=== PATIENT | female | born 1970 | race Caucasian/White ===

== ENCOUNTER 2018-11-03 17:53 | Emergency (ER) | payer MEDICARE, MEDICAID ==
[~2018-11-03 17:53] MED LIST: AMBIEN 10MG10 MG PO; AMBIEN10 MG PO; DIAMOX 250MG250 MG PO; DIAMOX SEQUELS500 M1; GEODON80 MG; GEODON80 MG PO; LITHIUM 30300 MG/CAP PO; LITHIUM 60600 MG/CAP PO; MAGIC MOUTHWASH1 M1 PO; NEXIUM 40MG40 MG; NYSTATIN 100MU/M1 ML; NYSTATIN 100MU/ML PO; OXYCODONE30 MG PO; OXYCONTIN 20MG20 MG PO; OXYCONTIN ER40 MG PO; PERCOCET 325 MG1 TAB PO; PREDNISONE20 MG PO; SEROQUEL200 MG PO; SYNTHROID0.05 MG PO; TRAZADONE HYDR100 MG; VALIUM 5MG T5 MG/TAB PO; VENTOLIN0.09 MG IH; VIBRAMYCIN100 MG PO
[2018-11-03] MEDS ORDERED: PROPRANOLOL HCL20 M2 PO (18:02)
[2018-11-03] MEDS ORDERED: OXCARBAZEPINE300 M1 PO (18:02)
[2018-11-03] MEDS ORDERED: OMEPRAZOLE D/R20 MG PO (18:02)
[2018-11-03] MEDS ORDERED: DESYREL50 MG PO (18:02)
[2018-11-03] MEDS ORDERED: ADVAIR DISKUS1 DS2 IH (18:02)
[2018-11-03] MEDS ORDERED: ZIPRASIDONE HCL80 MG PO (18:03)
[2018-11-03] MEDS ORDERED: QUETIAPINE FUM400 MG PO (18:03)
[2018-11-03 18:17] LABS: EOS # 0.4 (0.04-0.40); EOS % 3.5 % (1.0-5.0); HEMATOCRIT 40.3 % (37.0-47.0); HEMOGLOBIN 12.8 g/dL (12.5-16.0); LYMPH# 2.7 (1.50-4.00); MEAN CELL VOLUME 91 fl (78-100); MEAN CORPUSCULAR HEMOGLOBIN 29 pg (27-31); MEAN CORPUSCULAR HGB CONC 32 g/dL (33-37); MEAN PLATELET VOLUME 9.9 fl (7.4-10.4); MONO # 0.8 (0.20-0.80); NEU # 7.4 (1.40-6.50); PLATELET COUNT 313 K/mm3 (130-400); RED BLOOD COUNT 4.41 M/mm3 (4.10-5.30); RED CELL DISTRIBUTION WIDTH 13.7 % (11.5-14.5); WHITE BLOOD COUNT 11.3 K/mm3 (4.8-10.8)
[2018-11-03 18:59] LABS: ALBUMIN 4.4 g/dL (3.5-5.0); ALT/SGPT 30 U/L (0-55); AST-SGOT 24 U/L (5-34); CALCIUM 10.1 mg/dL (8.4-10.2); CARBON DIOXIDE 24 mmol/L (22-29); GLUCOSE 100 mg/dL (65-105); POTASSIUM 4.2 mmol/L (3.5-5.1); SODIUM 140 mmol/L (136-145); TOTAL PROTEIN 7.9 g/dL (6.4-8.3)
[2018-11-03 19:00] LABS: ACETAMINOPHEN < 1 ug/mL; ALCOHOL IN-HOUSE < 10 mg/dL (<10); TOTAL BILIRUBIN 0.1 mg/dL (0.2-1.2)
[2018-11-03 19:39] LABS: URINE APPEARANCE CLOUDY; URINE BILIRUBIN NEGATIVE (NEGATIVE); URINE BLOOD NEGATIVE (NEGATIVE); URINE COLOR YELLOW; URINE GLUCOSE NEGATIVE (NEGATIVE); URINE KETONE TR (NEGATIVE); URINE LEUKOCYTE ESTERASE NEGATIVE (NEGATIVE); URINE NITRATE NEGATIVE (NEGATIVE); URINE PROTEIN(semi-quant) TRACE mg/dL (NEGATIVE); URINE UROBILINOGEN NORMAL (NORMAL)
[2018-11-04] MEDS ORDERED: LEVOTHYROXINE0.15 MG PO (08:13)
[2018-11-04] MEDS ORDERED: SEROQUEL400 MG PO (08:26)
[2018-11-04] MEDS ORDERED: PROPRANOLOL HCL40 M2 PO (08:27)
[2018-11-04] MEDS ORDERED: TRILEPTAL 300M300 MG PO (08:28)
[2018-11-04] MEDS ORDERED: LEVOXYL0.15 MG PO (08:28)
[2018-11-04] MEDS ORDERED: LITHOBID (08:28)
[2018-11-04] MEDS ORDERED: GEODON80 M1 PO (08:29)
[2018-11-04] MEDS ORDERED: LEADER OMEPRAZO20 MG PO (08:29)
[2018-11-04] MEDS ORDERED: BELSOMRA20 MG PO (08:29)
[2018-11-04] MEDS ORDERED: SENNA8.6 M1 PO (08:29)
[2018-11-04 09:00] VITALS: BP 162/95
== END 2018-11-04 14:42 ==
LOC: ED 17:53
PROVIDERS: Nurse Practitioner Family
DX: F23 Brief psychotic disorder (principal); F39 Unspecified mood [affective] disorder; J44.9 Chronic obstructive pulmonary disease, unspecified; F31.9 Bipolar disorder, unspecified; M54.9 Dorsalgia, unspecified; G89.29 Other chronic pain; F17.210 Nicotine dependence, cigarettes, uncomplicated; F12.10 Cannabis abuse, uncomplicated
CPT/HCPCS: J1630; J2060

== ENCOUNTER 2019-01-26 18:18 | Emergency (ER) | payer MEDICARE, MEDICAID ==
[~2019-01-26 18:18] MED LIST changes: +ADVAIR DISKUS1 DS2 IH; +BELSOMRA20 MG PO; +DESYREL50 MG PO; +GEODON80 M1 PO; +LEADER OMEPRAZO20 MG PO; +LEVOTHYROXINE0.15 MG PO; +LEVOXYL0.15 MG PO; +LITHOBID; +OMEPRAZOLE D/R20 MG PO; +OXCARBAZEPINE300 M1 PO; +PROPRANOLOL HCL20 M2 PO; +PROPRANOLOL HCL40 M2 PO; +QUETIAPINE FUM400 MG PO; +SENNA8.6 M1 PO; +SEROQUEL400 MG PO; +TRILEPTAL 300M300 MG PO; +ZIPRASIDONE HCL80 MG PO
[2019-01-26] MEDS ORDERED: LITHIUM CARBON300 M3 PO (18:26)
[2019-01-26] MEDS ORDERED: INDERAL 10MG10 MG PO (18:26)
[2019-01-26 19:08] LABS: URINE APPEARANCE HAZY; URINE COLOR YELLOW; URINE PROTEIN(semi-quant) TRACE mg/dL (NEGATIVE)
[2019-01-26 19:09] LABS: URINE BILIRUBIN NEGATIVE (NEGATIVE); URINE BLOOD NEGATIVE (NEGATIVE); URINE GLUCOSE NEGATIVE (NEGATIVE); URINE KETONE NEGATIVE (NEGATIVE); URINE LEUKOCYTE ESTERASE 1+ (NEGATIVE); URINE NITRATE NEGATIVE (NEGATIVE); URINE UROBILINOGEN NORMAL (NORMAL); URINE WBC 16-30 /hpf (0-3)
[2019-01-26] MEDS ORDERED: MACROBID 100 M100 MG PO (19:43)
[2019-01-26] MEDS ORDERED: CYCLOBENZAPRINE10 M1 PO (19:46)
[2019-01-26] MEDS ORDERED: NORCO 325 MG-51 TAB PO (19:46)
[2019-01-26] MEDS ORDERED: PHENERGAN 25 TA25 MG PO (19:51)
[2019-01-26 20:04] VITALS: BP 126/96
== END 2019-01-26 20:00 | disposition home or self-care (01) ==
LOC: ED 18:18
PROVIDERS: Nurse Practitioner Family
DX: N30.00 Acute cystitis without hematuria (principal); G89.29 Other chronic pain; M54.5 Low back pain
CPT/HCPCS: J2300